=== PATIENT | male | born 1985 | race Caucasian/White ===

== ENCOUNTER 2018-02-27 20:52 | Emergency (ER) | payer OTHER ==
--- NOTE | 2018-02-27 21:36 | ED ---
HPI Chest Pain - HPI Summary HPI Summary: 32-year-old male presents with sudden onset shortness breath and chest pain today. He states he feels similar to a panic attack he has had in the past. He states he started hyperventilating. He states he developed numbness and tingling in his hands. He states he's had previous panic attacks when he said stressed out but denies any stress now. He states he did work out today and use a treadmill for 30 minutes without any chest pain or shortness breath. He states he did feel very anxious morning but then it resolved at work. He states at home tonight he started to develop these symptoms. He states that since being here symptoms started to resolve. He denies any chest pain at the moment. He states he just feels a little short of breath and feels some palpitations. He denies any history of diabetes or high blood pressure. He doesn't know his family history as he was adopted but believes potentially has a history of substance abuse. He is not on any medication currently. Denies any suicidal or homicidal thoughts. No abdominal pain. No nausea vomiting. No cough or recent illness. Pain does not radiate anywhere. No diaphoresis. no pain or swelling to his calf muscles. No recent travel. - History of Current Complaint Chief Complaint: EDChestPainROMI Time Seen by Provider: 02/27/18 21:23 Pain Intensity: 4 PMH/Surg Hx/FS Hx/Imm Hx Endocrine/Hematology History: Denies: Hx Anticoagulant Therapy Cardiovascular History: Denies: Hx Hypertension, Hx Myocardial Infarction Infectious Disease History: No Infectious Disease History: Denies: Traveled Outside the [place] in Last 30 Days - Family History Known Family History: Positive: Unknown - Social History Alcohol Use: Daily Alcohol Amount: glass of wine a night Substance Use Type: Reports: None Smoking Status (MU): Never Smoked Tobacco Review of Systems Negative: Fever Positive: Palpitations, Chest Pain Positive: Shortness Of Breath. Negative: Cough Negative: Abdominal Pain All Other Systems Reviewed And Are Negative: Yes Physical Exam Triage Information Reviewed: Yes Vital Signs On Initial Exam: Initial Vitals Temp Pulse Resp BP Pulse Ox 98 F 102 24 123/100 100 02/27/18 20:55 02/27/18 20:55 02/27/18 20:55 02/27/18 20:55 02/27/18 20:55 Vital Signs Reviewed: Yes Appearance: Positive: Well-Appearing Skin: Positive: Warm, Dry Head/Face: Positive: Normal Head/Face Inspection Eyes: Positive: Normal, Conjunctiva Clear ENT: Positive: Pharynx normal Respiratory/Lung Sounds: Positive: Clear to Auscultation, Breath Sounds Present Cardiovascular: Positive: Normal, RRR Abdomen Description: Positive: Nontender, Soft Bowel Sounds: Positive: Present Musculoskeletal: Positive: Normal Neurological: Positive: Normal Psychiatric: Positive: Anxious Diagnostics - Vital Signs Vital Signs Temp Pulse Resp BP Pulse Ox 02/27/18 21:14 86 21 137/81 98 02/27/18 21:10 92 99 02/27/18 20:55 98 F 102 24 123/100 100 - Laboratory Result Diagrams: 02/27/18 21:40 02/27/18 21:40 Lab Statement: Any lab studies that have been ordered have been reviewed, and results considered in the medical decision making process. - EKG No standard instances Cardiac Rate: NL EKG Rhythm: Sinus Rhythm Summary of EKG Findings: sinus rhythm, early repolization Re-Evaluation - Re-Evaluation First Eval Re-Evaluation Time: 22:30 Change: Improved Comment: feeling better Chest Pain Course/Dx - Course Course Of Treatment: 32-year-old male presents with what he believes is a panic attack. He admits to shortness of breath chest pain and palpitations. States the symptoms are resolving. He states he was hyperventilating. No cardiac history. Doesn't know family history as was adopted. Is nonsmoker. No personal risk factors for cardiac disease. On exam patient appears anxious. Lungs clear to auscultation. Heart regular rate and rhythm. EKG shows early repolarization. D-dimer is negative. Troponin negative. Patient declined chest x-ray. We'll discharge with diagnosis of anxiety. gave hydroxyzine for symptoms. Patient understands agrees the plan. - Chest Pain Differential Diagnosis/HQI/PQRI: Acute KS, Pulmonary Embolism, Other: - anxiety - Diagnoses Provider Diagnoses: Shortness of breath Discharge - Sign-Out/Discharge Documenting (check all that apply): Patient Departure - Discharge Plan Condition: Good Disposition: HOME Prescriptions: hydrOXYzine HCL TAB* [Atarax 25 MG TAB*] 25 mg PO QID PRN #20 tab PRN Reason: Anxiety Patient Education Materials: Anxiety (ED) Referrals: [facility] [place] [facility] [Outside] Additional Instructions: take Benadryl or hydroxyzine every 6 hours as needed for anxiety Establish care with primary Return to ED if develop any new or worsening symptoms - Billing Disposition and Condition Condition: GOOD Disposition: Home
[2018-02-27 21:52] LABS: ABS Basophils 0.1 10^3/ul (0-0.2); ABS Eosinophils 0.2 10^3/ul (0-0.6); ABS Lymphocytes 2.8 10^3/ul (1.0-4.8); ABS Monocytes 0.7 10^3/ul (0-0.8); ABS Neutrophils 3.7 10^3/ul (1.5-7.7); ABS Nucleated RBC 0 10^3/ul; Eosinophil % 2.1 %; Hematocrit 42 % (42-52); Hemoglobin 14.5 g/dl (14.0-18.0); Lymphocyte % 38.4 %; Mean Corpuscular HGB Conc 35 g/dl (31-36); Mean Corpuscular Hemoglobin 32 pg (27-31); Mean Corpuscular Volume 92 fL (80-94); Mean Platelet Volume 7.8 fL (7.4-10.4); Nucleated Red Blood Cells % 0.1; Platelet Count 294 10^3/ul (150-450); Red Blood Count 4.53 10^6/ul (4.00-5.40); Red Cell Distribution Width 13 % (10.5-15); White Blood Count 7.4 10^3/ul (3.5-10.8)
[2018-02-27 22:26] LABS: Albumin 4.6 g/dL (3.2-5.2); BUN/Creatinine Ratio 22.7 (8-20); Calcium 9.7 mg/dL (8.6-10.3); Globulin 2.3 g/dL (2-4); Potassium 3.4 mmol/L (3.5-5.0); Total Bilirubin 1.1 mg/dL (0.2-1.0); Total Protein 6.9 g/dL (6.4-8.9)
[2018-02-27 22:45] VITALS: BP 116/73
== END 2018-02-27 22:46 | disposition home or self-care (01) ==
LOC: ED 20:52
DX: R06.02 Shortness of breath (principal); R07.9 Chest pain, unspecified; R00.2 Palpitations; R06.4 Hyperventilation
CPT/HCPCS: 36415; 80053; 84484; 85025; 85379; 93005; 99283

== ENCOUNTER 2019-06-05 16:48 | Emergency (ER) | payer OTHER ==
--- NOTE | 2019-06-05 17:43 | UC ---
Complaint Male HPI - HPI Summary HPI Summary: 33 yo male presents with urinary complaint. He tells me that for the last 4-5 days he has noticed a burning sensation to the tip of his penis. He notes that he runs often and has recently changed running shorts that are very tight and he also sweats a lot. Discomfort is present at all times and is not changed with urination. He feels well otherwise and denies fever, chills, abdominal pain , n/v, hematuria, penile drainage, flank pain. No hx of kidney stones. States is in a 5 year monogamous relationship and is not concerned about STDs today. - History of Current Complaint Stated Complaint: PERSONAL Time Seen by Provider: 06/05/19 17:21 Hx Obtained From: Patient Onset/Duration: Gradual Onset Severity Initially: Mild Severity Currently: Moderate Pain Intensity: 5 Pain Scale Used: 0-10 Numeric - Allergies/Home Medications Allergies/Adverse Reactions: Allergies Allergy/AdvReac Type Severity Reaction Status Date / Time No Known Allergies Allergy Verified 06/05/19 17:37 Home Medications: Home Medications Nystatin CREAM* [Nystatin Cream*] 1 applic TOPICAL BID #1 tube 06/05/19 [Rx] PMH/Surg Hx/FS Hx/Imm Hx - Additional Past Medical History Additional PMH: None Other History Of: Negative For: Anticoagulant Therapy - Surgical History Surgical History: None - Family History Known Family History: Positive: None - Social History Occupation: Employed Full-time Lives: With Family Alcohol Use: Daily Alcohol Amount: glass of wine a night Substance Use Type: None Smoking Status (MU): Never Smoked Tobacco Review of Systems All Other Systems Reviewed And Are Negative: No Constitutional: Positive: Negative Skin: Positive: Negative Respiratory: Positive: Negative Cardiovascular: Positive: Negative Genitourinary: Positive: Vaginal/Penile Burning Neurological/Mental Status: Positive: Negative Psychological: Positive: Negative Physical Exam - Summary Physical Exam Summary: GENERAL: NAD. WDWN. No pain distress. SKIN: No rashes, sores, lesions, or open wounds. NECK: Supple. Nontender. No lymphadenopathy. CHEST: CTAB. No r/r/w. No accessory muscle use. Breathing comfortably and in no distress. CV: RRR. Pulses intact. Cap refill <2seconds ABDOMEN: Soft. NTTP. No CVA tenderness. Bowel sounds present NEURO: Alert. PSYCH: Age appropriate behavior. Triage Information Reviewed: Yes Vital Signs: Vital Signs: Temp Pulse Resp BP Pulse Ox 98.7 F 73 18 142/80 98 06/05/19 17:33 06/05/19 17:33 06/05/19 17:33 06/05/19 17:33 06/05/19 17:33 Laboratory Tests 06/05/19 18:00 POC Urine Color Yellow POC Urine Clarity Clear POC Urine pH 5.5 POC Ur Specif [place] >= 1.030 POC Urine Protein Negative POC Ur Glucose (UA) Negative POC Urine Ketones Negative POC Urine Blood Negative POC Urine Nitrite Negative POC Urine Bilirubin Negative POC Urine Urobilinogen 0.2 POC U Leukocyte Esteras Negative Vital Signs Reviewed: Yes Male Genital Exam: Positive: Normal Genitalia, Other - No erythema, ulcerations , or tenderness on exam. Area of concern pt points to meatus.. Negative: Bleeding, Epididymal Tenderness, Inguinal Tenderness, Lesions, Scrotum Tenderness (R), Scrotum Tenderness (L), Testicular Tenderness (R), Testicular Tenderness (L), Urethral Discharge Complaint Male Course/Dx - Course Course Of Treatment: UA negative. Exam WNL. Will send for GC/C. Discussed with Dr. Huerta - history seems most consistent with yeast/dermatitis , thus will treat for this today with nystatin cream and have him be rechecked if symptoms worsen or change. - Differential Dx/Diagnosis Provider Diagnosis: Urethral meatus pain Discharge ED - Sign-Out/Discharge Documenting (check all that apply): Patient Departure All imaging exams completed and their final reports reviewed: No Studies - Discharge Plan Condition: Stable Disposition: HOME Prescriptions: Nystatin CREAM* [Nystatin Cream*] 1 applic TOPICAL BID #1 tube Patient Education Materials: Nonspecific Urethritis in Men (ED), Dermatitis (ED ) Referrals: No Primary Care Phys,NOPCP [Primary Care Provider] - Dev Pete MD [Medical Doctor] - If Needed Additional Instructions: Your urine test and exam in the clinic were normal. I recommend trying the yeast cream to see if this provides relief. -- If you have no change or worse, I recommend being rechecked by your PCP or Urology. - Billing Disposition and Condition Condition: STABLE Disposition: Home
[2019-06-05 17:50] VITALS: BP 142/80
[2019-06-08 17:11] LABS: Chlamydia trachomatis NAA Negative (Negative); Neisseria gonorrhoeae (GC) NAA Negative (Negative)
== END 2019-06-05 18:16 | disposition home or self-care (01) ==
LOC: UCEAST 16:48
DX: N36.8 Other specified disorders of urethra (principal)
CPT/HCPCS: 81003; 87491; 87591; 99212; G0463